=== PATIENT | female | born 1975 | race Caucasian/White ===

== ENCOUNTER → 2020-12-19 | Day surgery (SDC) | payer OTHER ==
[~2020-12-19] MED LIST: NORCO 5-325 TA1 EACH PO; ULTRAM 50MG TAB50 MG PO; VYVANSE60 MG PO
--- NOTE | 2020-12-20 07:15 | OP ---
[address] [address] OPERATIVE REPORT Name: DARWIN OCHOA Room: [facility]#: [id number] Admission: 12/19/20 Attend Phys: Miladys Jimenez DO Discharge: Date of : 79 Report #: [id number] THIS REPORT FOR: cc: Therese Bernal MD, K. Gay MD Brock, Christie M. DO ~ DICTATED BY: Brigitte Alberto DO DATE OF SERVICE: 12/19/2020 PRIMARY CARE PHYSICIAN: Sheryl Bernal MD. ONCOLOGIST: Enzo Calixto MD. PREOPERATIVE DIAGNOSIS: Left breast triple-negative breast cancer. POSTOPERATIVE DIAGNOSIS: Left breast triple-negative breast cancer. OPERATIVE FINDINGS: Normal internal jugular anatomy. PRIMARY SURGEON: Miladys Jimenez DO BURNING MACHINE OPERATOR: Brigitte Alberto DO, PGY3. PROCEDURE PERFORMED: Right internal jugular vein ultrasound and fluoroscopy guided chemo port placement, with surgeon interpretation of images. ANESTHESIA: General and local. ESTIMATED BLOOD LOSS: 5 mL. SPECIMEN: None. COMPLICATIONS: None. INDICATIONS FOR PROCEDURE: The patient is a 45-year-old female that presented to our office and was found to have left breast triple-negative breast cancer with need to initiate immediate therapy. It was recommended that she undergo a chemo port placement. The procedure, risks, benefits, possible complications to include bleeding, infection, injury to surrounding structures, need for additional surgery, port complications, pneumothorax, risks of anesthesia, and other risks of surgery were discussed with the patient in great detail. She voiced complete understanding and wished to proceed with surgery. DESCRIPTION OF PROCEDURE: Informed consent was obtained[place] [address] OPERATIVE REPORT Name: DARWIN OCHOA Room: [facility].#: [id number] Admission: 12/19/20 Attend Phys: Miladys Jimenez DO Discharge: Date of : 79 Report #: [id number] to the operating room and placed supine on the operating room table. General anesthesia was induced without difficulty. SCDs were placed on bilateral lower extremities. Preoperative antibiotics were given. The right neck anatomy was visualized with ultrasound. The right neck was then prepped and draped in the standard sterile fashion. A timeout was performed to ensure correct patient and procedure. We began again by visualizing the right neck anatomy using the ultrasound. The area where we planned to access the right IJ was anesthetized with 0.5% Marcaine. The area in the right upper chest where we planned to place our actual port was also anesthetized using 0.5% Marcaine. The right IJ was then accessed using the 18-gauge finder needle under ultrasound guidance with 1 pass of the needle. Dark venous blood return was noted. The syringe was removed. Guidewire was passed through the needle. Needle was removed. C-arm was brought in to ensure our guidewire was in good position. Initial cold water machine operator image was obtained, guidewire was seen in the superior vena cava coursing to the cavoatrial junction. C-arm was backed away, guidewire was secured and the right chest area that was previously anesthetized just inferior to the clavicle was palpated. A 3 cm incision was made using #15 blade scalpel. Incision was carried down through subcutaneous tissue using electrocautery. A pocket was formed that was large enough to accommodate our port. Once this was done, a small skin theo was made contiguous with the wire where it entered the skin using a #11 blade scalpel. The dilator and breakaway sheath were passed over the wire without difficulty. The wire and inner dilator were removed, all intact. The catheter was then passed through the breakaway sheath. Breakaway sheath was removed. The catheter was then tunneled under the skin into the superior aspect of the pocket that we had previously made for our port. Once this was done, C-arm was brought back in and fluoro was run as we backed the catheter up until it was in a good position in the cavoatrial junction in the superior vena cava. The catheter was secured. The port was then again brought onto the field and it was anchored into our pocket using two 2-0 Prolene sutures. The inner wire within the catheter was then removed. Catheter was trimmed to an appropriate length. Catheter was attached to the top of our port and secured. The port was then flushed. Dark venous blood return was noted. Catheter flushed easily with injectable saline. The port was then packed with 3 mL of heparin that was 100 units per mL, so a total of 300 units of heparin. The anchoring sutures were tied down and port was placed within our pocket. The incision was then reapproximated. The deep subcutaneous tissue was reapproximated using 3-0 Vicryl suture in a simple interrupted and inverted fashion. Skin was closed using 4-0 Monocryl suture in a running subcuticular fashion. Skin was cleansed and dried. Dermabond was applied to the incision as well as our small skin theo in the right neck. The patient tolerated the procedure very well. She was allowed to awaken in the operating room, [place] [address] OPERATIVE REPORT Name: DARWIN OCHOA Room: [facility]#: [id number] Admission: 12/19/20 Attend Phys: Miladys Jimenez DO Discharge: Date of : 79 Report #: [id number] transferred to the PACU in stable condition with plans for a post-procedure chest x-ray. She will discharge home and begin chemo MARK [facility]ON[facility]. <ELECTRONICALLY SIGNED> By: Miladys Jimenez DO 12/20/20 0715 1221 [id number] Jimenez DO /nt
== END | disposition home or self-care (01) ==
LOC: M.SUR 05:20
PROVIDERS: ATTEND Surgery
DX: Z45.2 Encounter for adjustment and management of vascular access device (principal); C50.912 Malignant neoplasm of unspecified site of left female breast; I10 Essential (primary) hypertension; F41.9 Anxiety disorder, unspecified; Z98.890 Other specified postprocedural states; Z79.899 Other long term (current) drug therapy

== ENCOUNTER → 2021-01-09 | Outpatient (CLI) | payer OTHER ==
[~2021-01-09] MED LIST changes: +ENDOCET 5-3251 EACH PO; +IRON325 M1 PO
== END ==
LOC: M.MRI
PROVIDERS: ATTEND Surgery
DX: C50.912 Malignant neoplasm of unspecified site of left female breast (principal); N63.23 Unspecified lump in the left breast, lower outer quadrant

== ENCOUNTER 2021-06-11 12:49 | Emergency (ER) | payer OTHER ==
[~2021-06-11] VITALS: Ht 160 cm; Wt 72.6 kg
[2021-06-11] MEDS ORDERED: VALIUM10 MG PO (13:12)
[2021-06-11] MEDS ORDERED: THC PO (13:13)
[2021-06-11 13:56] LABS: ABSOLUTE BASOPHILS 0.1 thou/uL (0.0-0.2); ABSOLUTE EOSINOPHILS 0.2 thou/uL (0.0-0.7); ABSOLUTE LYMPHOCYTES 1.1 thou/uL (0.8-5.3); ABSOLUTE MONOCYTES 0.3 thou/uL (0.0-1.2); ABSOLUTE NEUTROPHILS 7.2 thou/uL (1.6-8.1); BASOPHILS 0.7 %; EOSINOPHILS 2.5 %; HEMATOCRIT 38.4 % (37.0-47.0); HEMOGLOBIN 13.4 gm/dL (12.0-15.0); LYMPHOCYTES 12.3 %; MCH 31.1 pg (26.0-34.0); MCV 88.9 fL (80.0-100.0); MONOCYTES 3.1 %; NUCLEATED RBCS 0 /100WBC; PLATELET COUNT* 246 thou/uL (150-400); POLYS 81.4 %; RBC 4.32 mil/uL (4.20-5.00); RDW-CV 15.1 % (10.5-14.5); WBC 8.9 thou/uL (4.0-11.0)
[2021-06-11 15:42] VITALS: BP 143/77
== END 2021-06-11 15:43 | disposition home or self-care (01) ==
LOC: M.ERS 12:49
PROVIDERS: Emergency Medicine Emergency Medical Services
DX: R51.9 Headache, unspecified (principal); I10 Essential (primary) hypertension; Z79.899 Other long term (current) drug therapy; Z88.9 Allergy status to unspecified drugs, medicaments and biological substances; Z85.3 Personal history of malignant neoplasm of breast; Z98.890 Other specified postprocedural states